=== PATIENT | male | born 2000 | race African-American/Black ===

== ENCOUNTER 2025-01-12 12:05 | Emergency (ER) | payer SELFPAY ==
[2025-01-12 12:08] VITALS: BP 132/78
--- NOTE | 2025-01-12 12:11 | ED.GENMED ---
History of Present Illness
General
Chief Complaint: Foreign Body Removal
Source: patient
Exam Limitations: none
Time Seen by Provider: 01/12/25 12:09
Nursing documentation reviewed up to this point in time: agreed with
History of Present Illness
History of Present Illness:
This is a 24-year-old male with no past medical history who presents to the emergency department today with [facility] staff for concerns of potential foreign body in the rectum. Apparently, patient was being transferred from a different facility into
[facility] when they were walking patient through a metal detector/x-ray scanner for intake when they stated that 'something went off' and they are concerned that there is potential foreign body within patient.
Patient denies any rectal foreign body. He denies any abdominal pain, chest pain, shortness of breath, rectal bleeding, rectal pain. He has no medical complaints at this time.
Review of Systems
Review of Systems
All Other Systems: ROS reviewed and negative except as documented in HPI and ROS
Phy Exam
Physical Exam
Physical Exam:
General: Patient is well appearing and in no acute distress; non-toxic
Skin: Warm and dry, no rashes or lesions
Head: Normocephalic, atraumatic
Eyes: Sclera non-icteric. EOMs intact.
Cardiac: Regular rate and rhythm, no murmurs
Pulm: Normal respiratory effort, no wheezes, rales, rhonchi
Abdomen: No abdominal tenderness to palpation
Neuro: CN II-XII intact, no focal neurologic deficits.
Psychiatric: Appropriate mood and affect.
Course
Orders/Labs/Results
Orders:
Orders
01/12/25 12:15
Abdomen Xray - 1 View [CR Abdomen - 1 View] Urgent
Comment:
Reason For Exam: possible foreign body
CR Pelvis - 1 Or 2 Views Urgent
Comment:
Reason For Exam: possible foreign body
Vital Signs
Initial and Last Documented VS:
Initial Vital Signs
Temp Pulse Resp BP Pulse Ox
97.9 F 64 16 132/78 100
01/12/25 12:08 01/12/25 12:08 01/12/25 12:08 01/12/25 12:08 01/12/25 12:08
Last Documented Vital Signs
Temp Pulse Resp BP Pulse Ox
97.9 F 64 16 132/78 100
01/12/25 12:08 01/12/25 12:08 01/12/25 12:08 01/12/25 12:08 01/12/25 12:08
MDM/Problems Addressed
Differential Diagnosis Includes:
Differentials include foreign body, colonic gas
MDM/Problems Addressed:
24-year-old male presents emergency department today with concerns of potential foreign body in rectum. Patient states that he did not place a foreign body in his rectum. Present staff was concerned because apparently metal detector or x-ray
scanner was set off. The present staff does not have the x-ray images with them. On the pelvis and abdomen x-rays, there is no evidence of radiopaque foreign body. Patient stable for discharge.
*Pulse Oximetry
Patient hypoxic: no
*Critical Care Note
Total Time (30-74mins, 75-104mins- exclusive of procedures): Not Applicable
Data Reviewed
Review of Other/Old Records Reveals: Records (No previous visits in [facility] to review, no discharge summaries to review)
ED Attending Note
-
Portions of this chart may have been created with voice recognition software.� Occasional wrong word or��sound alike� substitutions may have occurred due to the inherent limitations of voice recognition software.
Discharge Plan
Departure
Patient Disposition: Home (Routine Discharge)
Date of Disposition: 01/12/25
Time of Disposition: 14:05
Patient with high blood pressure during this ER visit?: Yes
Condition: Good
Discharge Problem:
Encounter to discuss x-ray results
Instructions: BLOOD PRESSURE
Referrals:
Collins Lee MD [Active] - Call in 1-3 days for appt
Activity Restrictions/Additional Instructions:
Your x-rays did not show any evidence of foreign body but did show a 3 cm sclerotic density in the right hip bone which could likely represent a large benign bone island vs possible sclerotic lesions. I recommend following up with an orthopedist to
address these results.
He will need to see an orthopedist for follow up.
Patient is medically cleared for incarceration.
PLEASE RETURN EMERGENCY DEPARTMENT SHOULD YOU DEVELOP RECTAL PAIN, RECTAL BLEEDING, ABDOMINAL PAIN, HIP PAIN, DIFFICULTY WALKING, OR ANY OTHER SIGNS OR SYMPTOMS WORRISOME TO YOU.
Interventions
Interventions:
*Risk Screen - Suicide Last Done: 01/12/25 12:08
*General Assessment Last Done: 01/12/25 12:08
*Neglect/Abuse Screening Last Done: 01/12/25 12:08
*ED- Fall Risk Assessment Last Done: 01/12/25 14:20
*ED COVID-19 Vaccine History Last Done: 01/12/25 14:20
*Nursing Disposition Last Done: 01/12/25 14:20
Discharge Date and Time
Discharge Date/Time: 01/12/25 14:20
Print Language: ARMENIAN
== END 2025-01-12 14:20 | disposition home or self-care (01) ==
LOC: EMR 12:05
PROVIDERS: EMERGENCY PHYSICIAN Emergency Medicine
DX: Z04.89 Encounter for examination and observation for other specified reasons (principal)
CPT/HCPCS: 99283; 72170; 74018